=== PATIENT | male | born 1955 ===

== ENCOUNTER 2016-09-04 18:49 | Emergency (ER) | payer OTHER ==
--- NOTE | 2016-09-05 03:40 | Emergency Department Report ---
ED Lower Extremity HPI - General Chief Complaint: Extremity Injury, Lower Stated Complaint: TWISTED ANKLE/SEVERE PAIN Time Seen by Provider: 09/05/16 03:02 Source: patient Mode of arrival: Wheelchair Limitations: Physical Limitation - History of Present Illness Initial Comments: Patient here reports that he twisted his left ankle. Denies history of. He is reporting pain at 10 out of 10. Denies any nausea or vomiting. Denies any fall. She reports swelling. This happened today. Complaint: ankle injury -: This evening Injury: Ankle: Left (pain and swelling from twisting) Type of Injury: eversion Place: street/outdoors Severity: severe Severity scale (0 -10): 10 Improves With: nothing Worsens With: weight bearing, movement, palpation Context: walking Associated Symptoms: swelling, able to partially bear weight, ambulatory. denies: snap/pop sensation, numbness, tingling Treatments Prior to Arrival: other (none) - Related Data Previous Rx's Medication Instructions Recorded Last Taken Type Oxycodone HCl/Acetaminophen 1 each PO Q6HR PRN #16 tablet 09/05/16 Unknown Rx [Percocet 7.5/325 mg] Allergies Allergy/AdvReac Type Severity Reaction Status Date / Time No Known Allergies Allergy Unverified 09/04/16 20:37 ED Review of Systems ROS: Stated complaint: TWISTED ANKLE/SEVERE PAIN Other details as noted in HPI Comment: All other systems reviewed and negative Constitutional: denies: chills, fever Respiratory: no symptoms reported Cardiovascular: denies: chest pain, palpitations, edema, syncope Musculoskeletal: joint swelling, arthralgia. denies: back pain, myalgia Skin: denies: rash Neurological: abnormal gait. denies: headache, weakness, numbness, paresthesias , confusion, vertigo ED Past Medical Hx - Past Medical History Previous Medical History?: No - Surgical History Past Surgical History?: No - Family History Family history: no significant - Social History Smoking Status: Never Smoker Substance Use Type: None - Medications Home Medications: Home Medications Medication Instructions Recorded Confirmed Last Taken Type Oxycodone HCl/Acetaminophen 1 each PO Q6HR PRN #16 tablet 09/05/16 Unknown Rx [Percocet 7.5/325 mg] ED Physical Exam - General Limitations: Physical Limitation General appearance: alert, in no apparent distress - Head Head exam: Present: atraumatic, normocephalic, normal inspection - Expanded Head Exam Expanded Head exam: Absent: laceration, abrasion, contusion, hematoma, racoon eyes, saleh's sign, general tenderness, tenderness of temporal artery, CSF rhinorrhea , CSF otorrhea - Eye Eye exam: Present: normal appearance, PERRL, EOMI. Absent: periorbital swelling , periorbital tenderness Pupils: Present: normal accommodation - Neck Neck exam: Present: normal inspection, full ROM. Absent: tenderness, meningismus, lymphadenopathy - Expanded Neck Exam Expanded Neck exam: Absent: tenderness, midline deformity, anterior neck swelling, tracheal deviation - Respiratory Respiratory exam: Present: normal lung sounds bilaterally. Absent: chest wall tenderness - Cardiovascular Cardiovascular Exam: Present: regular rate, normal rhythm, normal heart sounds - GI/Abdominal GI/Abdominal exam: Present: soft, normal bowel sounds. Absent: distended, tenderness, guarding, rebound, rigid - Extremities Exam Extremities exam: Present: tenderness, normal capillary refill, joint swelling. Absent: full ROM, calf tenderness - Expanded Lower Extremity Exam Left Hip exam: Present: normal inspection, full ROM, pelvic stability. Absent: tenderness, swelling, abrasion, laceration, ecchymosis, deformity, crepidus, dislocation, erythema, external rotation, internal rotation, shortening Upper Leg exam: Present: normal inspection, full ROM. Absent: tenderness, swelling, abrasion, laceration, ecchymosis, deformity, crepidus, dislocation, erythema Knee exam: Present: normal inspection, full ROM, full knee extension. Absent: tenderness, swelling, abrasion, laceration, ecchymosis, deformity, crepidus, dislocation, erythema, effusion, pain w/ pronation/supination, posterior draw sign, pain/laxity with valgus, pain/laxity with varus Lower Leg exam: Present: normal inspection, full ROM. Absent: tenderness, swelling, abrasion, laceration, ecchymosis, deformity, crepidus, dislocation, erythema, palpable cord, Nick's sign Ankle exam: Present: tenderness (tibial aspect of left ankle), swelling. Absent : normal inspection, full ROM (pain with dorsiflexing and plantar flexion), abrasion, laceration, ecchymosis, deformity, crepidus, dislocation, erythema Foot/Toe exam: Present: normal inspection, full ROM. Absent: tenderness, swelling, abrasion, laceration, ecchymosis, deformity, crepidus, dislocation, erythema, amputation, puncture wound, foreign body, calcaneal tenderness, tenderness at base of 5th metatarsal, nail avulsion, subungual hematoma Neuro vascular tendon exam: Present: no vascular compromise, significant pain with passive ROM of distal joint. Absent: pulse deficit, abnormal cap refill, motor deficit, sensory deficit, tendon deficit, extremity cold to touch, pallor , abnormal 2-point discrimination, decreased fine/light touch, foot drop, peroneal nerve deficit Gait: Positive: unable to bear weight - Back Exam Back exam: Present: normal inspection, full ROM - Neurological Exam Neurological exam: Present: alert, oriented X3, normal gait, reflexes normal. Absent: motor sensory deficit - Psychiatric Psychiatric exam: Present: normal affect, normal mood - Skin Skin exam: Present: warm, dry, intact, normal color. Absent: rash ED Course Vital Signs 09/04/16 20:52 Temperature 97.6 F Pulse Rate 79 Respiratory 20 Rate Blood Pressure 154/92 O2 Sat by Pulse 98 Oximetry - Reevaluation(s) Reevaluation #1: 09/05/16 04:54 Splint placed to left ankle. Posterior ankle splint. Upon reevaluation, patient will good color, sensation, movement in temperature to toes. She given Toradol 60 mg IM for left ankle pain. 09/05/16 04:55 - Orthopedic Splinting/Casting Injury #1 Side: left Lower Extremity Injury Location: ankle Lower Extremity Immobilizer: posterior splint Other Orthopedic Equipment: crutches ED Lower Extremity MDM - Radiology Data Radiology results: report reviewed X-ray of left ankle revealed nondisplaced fracture distal fibula. There is associated soft tissue swelling. Mild arthritis. Moderate inferior calcaneal spur - Medical Decision Making ED course: I Discussed with patient that his x-ray showed that he has nondisplaced fracture to ankle. See procedure note for details on splinting. I explained to patient that he needs to keep splint on until seen by orthopedics and to afford to getting splint wet. Patient given Toradol 60 mg IM and emergency room to manage pain. He was given discharge instruction on ankle fracture and splint care. Patient discharged home with prescription for Percocet and to follow-up with orthopedic doctor. Critical care attestation.: If time is entered above; I have spent that time in minutes in the direct care of this critically ill patient, excluding procedure time. ED Disposition Clinical Impression: Arthralgia of left ankle, Calcaneal spur, left Fracture of fibula, left, closed Qualifiers: Encounter type: initial encounter Fibula location: distal Fracture morphology: unspecified fracture morphology Qualified Code(s): S82.832A - Other fracture of upper and lower end of left fibula, initial encounter for closed fracture Disposition: DISCHARGED TO HOME OR SELFCARE Is pt being admited?: No Does the pt Need Aspirin: No Condition: Stable Instructions: Arthralgia (ED), Ankle Fracture (ED), Splint Care (ED) Additional Instructions: No weightbearing to left lower extremity until seen by orthopedic doctor. Take medication as prescribed but avoid driving while using on pain medication because this will cause drowsiness. Prescriptions: Oxycodone HCl/Acetaminophen [Percocet 7.5/325 mg] 1 each PO Q6HR PRN #16 tablet PRN Reason: Pain Referrals: ALLEN GARZA MD [Staff Physician] - 2-3 Days Forms: Work/School Release Form(ED)
[2016-09-05] MEDS ORDERED: TORADOL IM ONE (03:44)
--- NOTE | 2016-09-05 04:00 | XRay Report ---
FINAL REPORT PROCEDURE: XR ANKLE 3 left TECHNIQUE: LEFT ankle radiographs, AP, lateral, and oblique views. CPT 38367 HISTORY: fall, inpaired gait COMPARISON: No prior studies are available for comparison. FINDINGS: Fracture (s) and/or Dislocation(s): There is a nondisplaced fracture across distal fibula. The remaining osseous structures are intact.. Alignment: Normal. Joint space(s): Normal. Soft tissues: Moderate soft tissue swelling globally. Bone mineralization: Normal. Foreign bodies: None. Calcaneal spurring: Moderate inferior spur. IMPRESSION: Nondisplaced fracture distal fibula. There is associated soft tissue swelling. Mild arthritis..
[2016-09-05 05:53] VITALS: BP 146/72
== END 2016-09-05 05:10 | disposition home or self-care (01) ==
LOC: ED 18:49
DX: S82.832A Other fracture of upper and lower end of left fibula, initial encounter for closed fracture (principal); X58.XXXA Exposure to other specified factors, initial encounter; Y93.01 Activity, walking, marching and hiking; Y92.410 Unspecified street and highway as the place of occurrence of the external cause; Y99.8 Other external cause status